=== PATIENT | female | born 1975 | race Caucasian/White ===

== ENCOUNTER 2019-09-05 09:08 | Outpatient (CLI) | payer OTHER ==
--- NOTE | 2019-09-05 10:05 | CT ---
Exam: Sinus CT without contrast HISTORY: Recurrent sinusitis, facial pain FINDINGS: Visualized brain parenchyma has a normal attenuation Bilateral ocular lenses are appropriately located. Both globes are intact. Retrobulbar fat is preserv ed. Symmetric attenuation of the optic nerves and ocular rectus muscles Visualized pituitary gland does not appear to be enlarged. No obvious mass with regards the optic chi asm and prechiasmatic optic nerves Visualized aerodigestive tract is patent. No mucosal abnormality. Visualized upper neck soft tissue structures, salivary glands have appropriate attenuation Coronal images demonstrate patent bilateral ostiomeatal complexes. Nasal septum is intact and essenti ally midline. There is no significant mucosal thickening of the paranasal sinuses. Minimal mucosal thickening of the left maxillary sinus. There are no destructive or erosive changes with regards to t he osseous margins of the sinuses. No evidence of osseous hypertrophy. Visualized osseous margins of the orbits are maintained Visualized mastoid air cells: Adequate aeration. Adequate aeration of the middle ear bilaterally IMPRESSION: 1. No CT evidence of significant disease. Minimal mucosal thickening of the left maxillary sinus
== END 2019-09-05 09:09 | disposition home or self-care (01) ==
LOC: BICCT 09:08
PROVIDERS: ATTEND Specialist
DX: J32.9 Chronic sinusitis, unspecified (principal); R51 Headache; J34.89 Other specified disorders of nose and nasal sinuses